=== PATIENT | male | born 1970 | race Caucasian/White ===

== ENCOUNTER 2018-05-22 12:04 | Inpatient (IN) ==
[2018-05-22] MEDS ORDERED: ATIVAN IV ONE ×2 (12:23→16:19)
[2018-05-22] MEDS ORDERED: NS 1,000 ML IV ONE ×2 (12:23→16:15)
[2018-05-22 12:38] LABS: BASO# 0.01 X1000 (0.0-0.2); BASO% 0.1 % (0.0-0.8); EOS# 0.01 X1000 (0.0-0.7); EOS% 0.1 % (0.0-10.0); HEMATOCRIT 37.4 % (42.0-52.0); IMM GRAN# 0.02 X1000 (0.0-0.04); IMM GRAN% 0.2 % (0.0-0.5); LYMPH# 0.98 X1000 (1.2-3.4); MCH 31.3 PG (27-31); MCHC 34.8 g/dL (33-37); MCV 90.1 FL (81-99); MONO# 0.47 X1000 (0.11-0.59); MONO% 5.3 % (1.7-9.3); NEUT# 7.45 X1000 (1.4-6.5); NEUT% 83.3 % (42.2-75.2); PLT 261 X1000 (130-400); RBC 4.15 XMIL (4.7-6.1); RDW 13.3 % (11.5-14.5); WBC 8.94 X1000 (4.8-10.8)
[2018-05-22 12:44] LABS: BE -7.5 mmoll (-3.0-3.0); BLOOD TYPE ARTERIAL; METHB 1.3 % (0.0-1.5); PCO2(98.6) 40 mmHg (35-45); PO2(98.6) 88 mmHg (60-100); SAMPLE BLOOD; SAO2 98.5 % (95.0-100.0); THB 13.4 g/dL (11.5-17.4); pH(98.6) 7.28 (7.35-7.45)
[2018-05-22 12:49] LABS: ALLEN TEST YES; MODALITY ROOM AIR
[2018-05-22] MEDS ORDERED: ATIVAN ONE ×2 (12:53)
[2018-05-22] MEDS ORDERED: NS 1,000 ML ONE ×2 (12:55)
[2018-05-22 12:56] LABS: ACETONE SERUM NEGATIVE (NEGATIVE)
[2018-05-22 13:06] LABS: AGAP 24; ALBUMIN 4.1 g/dL (3.5-5.0); ALKALINE PHOSPHATASE 133 U/L (32-122); BUN 29 mg/dL (8-22); CALCIUM 9.2 mg/dL (8.8-10.2); CHLORIDE 96 mmol/L (98-107); COSMO 289; CREATININE 1.6 mg/dL (0.7-1.2); ESTIMATED GFR 47; GLUCOSE 360 mg/dL (70-104); GOT 23 U/L (10-34); GPT 26 U/L (10-44); POTASSIUM 5.7 mmol/L (3.5-5.1); SODIUM 134 mmol/L (136-145); TCO2 14 mmol/L (25-35); TOTAL BILIRUBIN < 0.15 mg/dL (0.20-1.00); TOTAL PROTEIN 7.8 g/dL (6.3-8.3)
--- NOTE | 2018-05-22 13:23 | Diag Imaging Result Doc PS360 ---
EXAM: CT HEAD W/O CONTRAST HISTORY: multi seizures TECHNIQUE: CT head without contrast COMPARISON: 10/14/2017 FINDINGS: No parenchymal hemorrhage. No epidural or subdural hematoma. No subarachnoid hemorrhage. There are postsurgical changes with encephalomalacia in the left temporal region similar to the prior study. Small old left cerebellar infarct similar to the prior exam. No mass identified on this noncontrasted exam. No hydrocephalus. No sinus opacification. IMPRESSION: 1.No hemorrhage 2.Postsurgical changes with encephalomalacia in the left temporal region 3.Small old left cerebellar infarct This exam was performed using automated exposure control, adjustment of mA or kV according to patient size, and/or use of iterative reconstruction technique. Electronically signed by Mark Ty 05/22/2018 1:21 PM
--- NOTE | 2018-05-22 13:24 | Diag Imaging Result Doc PS360 ---
EXAM: CHEST-1 VIEW HISTORY: seizure,ams TECHNIQUE: Chest single view COMPARISON: 10/14/2017 FINDINGS: Poor inspiratory effort. The heart is not enlarged. The vessels are not distended. There are no infiltrates. No effusion identified. IMPRESSION: Negative exam. Electronically signed by Mark Ty 05/22/2018 1:22 PM
[2018-05-22 14:20] LABS: BILIRUBIN URINE NEGATIVE (NEGATIVE); BLOOD URINE 1+ (NEGATIVE); CLARITY CLEAR (CLEAR); COLOR YELLOW; KETONE URINE TRACE mg/dL (NEGATIVE); LEUKOCYTES URINE NEGATIVE (NEGATIVE); NITRITE URINE NEGATIVE (NEGATIVE); PROTEIN URINE 1+(30 mg/dL) mg/dL (NEGATIVE); SP GRAVITY URINE 1.015; UROBILINOGEN URINE NORMAL
[2018-05-22 14:28] LABS: URINE BACTERIA 1+ /HFP; URINE EPITHELIAL CELLS <10 /HPF (<10); URINE RBC <10 /HPF (<10)
[2018-05-22 14:29] LABS: URINE CAST NONE SEEN /LPF; URINE CRYSTAL NONE SEEN /HPF; URINE SOURCE CATH; URINE YEAST NONE SEEN /HPF
[2018-05-22 14:44] LABS: CREATININE 1.5 mg/dL (0.7-1.2); POTASSIUM 5.2 mmol/L (3.5-5.1)
[2018-05-22 15:02] LABS: UR AMPHETAMINES QUAL NONE DETECTED (NONE DETECT); UR BARBITUATES QUAL PRESUMPTIVE POSITIVE (NONE DETECT); UR BENZODIAZEPIN QUAL NONE DETECTED (NONE DETECT); UR CANNABINOIDS QUAL NONE DETECTED (NONE DETECT); UR COCAINE QUAL NONE DETECTED (NONE DETECT); UR METHADONE QUAL NONE DETECTED (NONE DETECT); UR METHAMPHETAMINE QUAL NONE DETECTED (NONE DETECT); UR OPIATES QUAL NONE DETECTED (NONE DETECT); UR OXYCODONE QUAL NONE DETECTED (NONE DETECT); UR PCP QUAL NONE DETECTED (NONE DETECT); UR PROPOXYPHENE QUAL NONE DETECTED (NONE DETECT); UR TCA QUAL NONE DETECTED (NONE DETECT)
[2018-05-22] MEDS ORDERED: MORPHINE IV PRN (16:15)
[2018-05-22] MEDS ORDERED: TYLENOL PO PRN (16:15)
--- NOTE | 2018-05-22 16:22 | PROVIDER DOCUMENTATION ---
This chart was entered by Clair Kaur Scribe, acting as scribe for Jake Hernandez MD. HPI-Neurological Disorder - General Chief Complaint: Seizure Stated Complaint: Seizure Time Seen by Provider: 05/22/18 12:10 Source: EMS Allergies/Adverse Reactions: Patient Allergies Allergy/AdvReac Type Severity Reaction Status Date / Time clindamycin Allergy Intermediate HIVES Verified 07/25/17 02:31 Penicillins Allergy Intermediate HIVES Verified 07/25/17 02:31 piperacillin sodium * Allergy Intermediate FLUSHING Verified 07/25/17 02:31 [From Zosyn] tazobactam sodium * Allergy Intermediate FLUSHING Verified 07/25/17 02:31 [From Zosyn] Home Medications: Home Medication List Medication Instructions Recorded Confirmed Last Taken Type Metformin [Glucophage] 1,000 mg PO BID CC 09/10/14 07/26/17 09/26/14 09:00 History Phenytoin [Dilantin] 200 mg PO TID 09/10/14 07/26/17 09/26/14 09:00 History Amlodipine [Norvasc] 5 mg PO DAILY 05/01/17 07/26/17 Unknown History Lisinopril 40 mg PO DAILY 05/01/17 07/26/17 Unknown History Gabapentin [Neurontin] 100 mg PO TID 07/25/17 07/26/17 Unknown History Lovastatin 40 mg PO DAILY 07/25/17 07/26/17 Unknown History Hydrocodone/APAP 5 mg/325 mg 1 tab PO Q4H PRN PRN #30 tab 08/01/17 Unknown Rx [[place]-5] Insulin Glargine,Hum.rec.anlog 15 unit SQ BID #5 insuln.pen 08/01/17 Unknown Rx [Lantus Solostar] - History of Present Illness-Neuro Nature of Presenting Problem: pt is 47/m presenting to ED via EMS. Pt has had 5 seizures are home this morning , called EMS to help her get him into bed. He then had a 6th seizure and was brought to the ED for evaluation. Pt has hx of seizure disorder and takes dilantin regularly. sts that there has been no change to his medication and that he is taking it as prescribed. He is reported to have had an episode like this about 3 months ago where he had a seizure every hour or so for a whole day. No reason was found that is told to us. - Seizure First time to have a seizure?: No Witnessed seizure?: Yes How many seizure episodes?: 6 Duration of episode? (mins): 2 Approximate time seizures began?: 05:00 Approximate time of the last seizure?: 11:30 Episode Frequency: chronic episodes Preceding symptoms/context:: none Character of Seizure: reports: generalized shaking all over Post-ictal Symptoms: reports: other (pt is lethargic) Seizure related injury: none Review of Systems - Adult - REVIEW OF SYSTEMS - ADULT Constitutional: reports: no symptoms reported. denies: chills, fever Eyes: reports: no symptoms reported Ears, Nose, Mouth & Throat: reports: no symptoms reported Cardiovascular: reports: no symptoms reported. denies: chest pain Respiratory: reports: no symptoms reported. denies: cough, shortness of breath , wheezing Gastrointestinal: reports: no symptoms reported. denies: diarrhea, nausea, vomiting Genitourinary: reports: no symptoms reported Musculoskeletal: reports: no symptoms reported Integumentary: reports: no symptoms reported Neurological: reports: no symptoms reported Psychiatric: reports: no symptoms reported Endocrine: reports: no symptoms reported Hematologic/Lymphatic: reports: no symptoms reported Allergic/Immunologic: reports: no symptoms reported All Other Systems: Reviewed and Negative Past History - Adult - PAST MEDICAL HISTORY-ADULT Review of Records: reports: Old Records Reviewed, Nursing Assessment Review, Medications Reviewed, Social history reviewed & non-contributory. Major Childhood Illnesses: reports: denies history Cardiovascular: reports: HTN Respiratory: reports: denies history Gastrointestinal: reports: denies history Obstetrical/Gynecological: reports: denies history Genitourinary: reports: other (chronic renal insuficiency. Previous Creatin 1.5 ) Musculoskeletal: reports: denies history Neurological: reports: Seizures/Epilepsy, spinal cord/brain injury Psychiatric: reports: depression Endocrine/Immune: reports: Diabetes Other Conditions: reports: MRSA, other (mulitple craniotomies) - PRIOR SURGERIES/PROCEDURES Surgical/Procedure History: reports: tonsillectomy, other (toe amputation) - PRIOR HOSPITALIZATIONS Prior Hospitalizations: reports: for similar symptoms - IMMUNIZATION STATUS Childhood Immunizations: See Nurse Assessment Flu Vaccine: See Nurse Assessment - FAMILY HISTORY Family History: reviewed, not pertinent - SOCIAL HISTORY Smoking: denies, non-smoker Substance Use: none/never Alcohol Use Frequency: never Living Situation: family Physical Exam- Neurological - Physical Exam-Neuro Initial Vital Signs Reviewed: Yes General Appearance: lethargic, slow to respond HENMT: normocephalic/atraumatic, moist mucous membranes Head Injury: no evidence of injury Neck: non-tender, full range of motion Respiratory: lungs clear, normal breath sounds Cardiovascular: regular rate, rhythm, no edema, no JVD, tachycardia Abdominal Exam: non tender, soft Extremity: normal range of motion, non-tender, other (prior toe amputations) Motor/Sensory: no motor deficit Neurologic: grossly normal Integumentary: normal color, normal turgor, warm/dry Psych/Mental Status: disheveled - Glascow Coma Scale Best Eye Response: (3) open to voice Best Verbal Response: (1) no verbal response Best Motor Response: (5) localizes to pain Progress - PLAN OF CARE/RESULTS Progress/Plan/Lab Results: Vital Signs - 8 hr 05/22/18 12:13 05/22/18 14:10 05/22/18 14:18 Temperature 96.9 F L Pulse Rate 87 83 Respiratory Rate 16 18 Blood Pressure 142/079 143/87 O2 Sat by Pulse Oximetry 97 100 05/22/18 15:54 Temperature Pulse Rate 85 Respiratory Rate 15 Blood Pressure 168/104 O2 Sat by Pulse Oximetry 100 Laboratory Results - last 24 hr 05/22/18 05/22/18 05/22/18 12:19 12:19 12:19 WBC 8.94 RBC 4.15 L Hgb 13.0 L Hct 37.4 L MCV 90.1 MCH 31.3 H MCHC 34.8 RDW Std Deviation 13.3 Plt Count 261 MPV 10.0 Immature Gran % (Auto) 0.2 Neut % (Auto) 83.3 H Lymph % (Auto) 11.0 L [place] % (Auto) 5.3 Eos % (Auto) 0.1 Baso % (Auto) 0.1 Immature Gran # (Auto) 0.02 Neut # (Auto) 7.45 H Lymph # (Auto) 0.98 L [place] # (Auto) 0.47 Eos # (Auto) 0.01 Baso # (Auto) 0.01 Specimen Type Sample Site pH pCO2 pO2 HCO3 Base Excess Oxyhemoglobin ABG O2 Sat (Calculated) ABG O2 Saturation ABG Carboxyhemoglobin ABG Methemoglobin Lalito Test A-a O2 Difference Total Hemoglobin Lactate Blood Gas Modality FiO2 % Sodium 134 L Potassium 5.7 H Chloride 96 L Carbon Dioxide 14 L Anion Gap 24 BUN 29 H Creatinine 1.6 H Estimated GFR/1.73 m2 47 BUN/Creatinine Ratio 18 Glucose 360 H Calculated Osmolality 289 Calcium 9.2 Total Bilirubin < 0.15 L AST 23 ALT 26 Alkaline Phosphatase 133 H Ammonia Troponin T Total Protein 7.8 Albumin 4.1 Globulin 4.0 Albumin/Globulin Ratio 1.0 Urine Source Urine Color Urine Clarity Urine pH Ur Specific [place] Urine Protein Urine Ketones Urine Blood Urine Nitrite Urine Bilirubin Urine Urobilinogen Urine Microscopic RBC Urine WBC Ur Epithelial Cells Urine Crystals Urine Bacteria Urine Casts Urine Yeast Urine Glucose Urine Opiates Screen Ur Oxycodone Screen Urine Methadone Screen U Propoxyphene Qual Ur Barbituates Screen Total Phenytoin 18.30 Ur Tricyclics Screen Ur Phencyclidine Scrn Ur Amphetamines Screen U Methamphetamines Scrn U Benzodiazepines Scrn Urine Cocaine Screen U Cannabinoids Screen Acetone Level NEGATIVE 05/22/18 05/22/18 05/22/18 12:19 12:31 12:40 WBC RBC Hgb Hct MCV MCH MCHC RDW Std Deviation Plt Count MPV Immature Gran % (Auto) Neut % (Auto) Lymph % (Auto) [place] % (Auto) Eos % (Auto) Baso % (Auto) Immature Gran # (Auto) Neut # (Auto) Lymph # (Auto) [place] # (Auto) Eos # (Auto) Baso # (Auto) Specimen Type ARTERIAL Sample Site L RADIAL pH 7.28 L pCO2 40 pO2 88 HCO3 19.0 L Base Excess -7.5 L Oxyhemoglobin 95.0 ABG O2 Sat (Calculated) 18.0 ABG O2 Saturation 98.5 ABG Carboxyhemoglobin 2.30 ABG Methemoglobin 1.3 Lalito Test YES A-a O2 Difference 12.0 Total Hemoglobin 13.4 Lactate 6.70 H* Blood Gas Modality ROOM AIR FiO2 % 21.0 Sodium Potassium Chloride Carbon Dioxide Anion Gap BUN Creatinine Estimated GFR/1.73 m2 BUN/Creatinine Ratio Glucose Calculated Osmolality Calcium Total Bilirubin AST ALT Alkaline Phosphatase Ammonia 34 Troponin T 0.017 Total Protein Albumin Globulin Albumin/Globulin Ratio Urine Source Urine Color Urine Clarity Urine pH Ur Specific [place] Urine Protein Urine Ketones Urine Blood Urine Nitrite Urine Bilirubin Urine Urobilinogen Urine Microscopic RBC Urine WBC Ur Epithelial Cells Urine Crystals Urine Bacteria Urine Casts Urine Yeast Urine Glucose Urine Opiates Screen Ur Oxycodone Screen Urine Methadone Screen U Propoxyphene Qual Ur Barbituates Screen Total Phenytoin Ur Tricyclics Screen Ur Phencyclidine Scrn Ur Amphetamines Screen U Methamphetamines Scrn U Benzodiazepines Scrn Urine Cocaine Screen U Cannabinoids Screen Acetone Level 05/22/18 05/22/18 05/22/18 13:50 13:50 14:02 WBC RBC Hgb Hct MCV MCH MCHC RDW Std Deviation Plt Count MPV Immature Gran % (Auto) Neut % (Auto) Lymph % (Auto) [place] % (Auto) Eos % (Auto) Baso % (Auto) Immature Gran # (Auto) Neut # (Auto) Lymph # (Auto) [place] # (Auto) Eos # (Auto) Baso # (Auto) Specimen Type Sample Site pH pCO2 pO2 HCO3 Base Excess Oxyhemoglobin ABG O2 Sat (Calculated) ABG O2 Saturation ABG Carboxyhemoglobin ABG Methemoglobin Lalito Test A-a O2 Difference Total Hemoglobin Lactate Blood Gas Modality FiO2 % Sodium 135 L Potassium 5.2 H Chloride 100 Carbon Dioxide 21 L Anion Gap 15 BUN 28 H Creatinine 1.5 H Estimated GFR/1.73 m2 50 BUN/Creatinine Ratio 19 Glucose 325 H Calculated Osmolality 288 Calcium 9.0 Total Bilirubin AST ALT Alkaline Phosphatase Ammonia Troponin T Total Protein Albumin Globulin Albumin/Globulin Ratio Urine Source CATH Urine Color YELLOW Urine Clarity CLEAR Urine pH 5.0 Ur Specific [place] 1.015 Urine Protein 1+(30 mg/dL) A Urine Ketones TRACE Urine Blood 1+ A Urine Nitrite NEGATIVE Urine Bilirubin NEGATIVE Urine Urobilinogen NORMAL Urine Microscopic RBC <10 Urine WBC NEGATIVE Ur Epithelial Cells <10 Urine Crystals NONE SEEN Urine Bacteria 1+ Urine Casts NONE SEEN Urine Yeast NONE SEEN Urine Glucose 3+(500 mg/dL) A Urine Opiates Screen NONE DETECTED Ur Oxycodone Screen NONE DETECTED Urine Methadone Screen NONE DETECTED U Propoxyphene Qual NONE DETECTED Ur Barbituates Screen PRESUMPTIVE POSITIVE A Total Phenytoin Ur Tricyclics Screen NONE DETECTED Ur Phencyclidine Scrn NONE DETECTED Ur Amphetamines Screen NONE DETECTED U Methamphetamines Scrn NONE DETECTED U Benzodiazepines Scrn NONE DETECTED Urine Cocaine Screen NONE DETECTED U Cannabinoids Screen NONE DETECTED Acetone Level Orders Category Date Time Status Admit - [facility] Routine AdmDCTranf 05/22/18 16:15 Ordered Call Admitting on Arrival AT ADMISSION Care 05/22/18 16:16 Ordered Cardiac Monitoring DIRECTED Care 05/22/18 12:19 Active Resuscitation Status Routine Care 05/22/18 16:15 Ordered Saline Loc DIRECTED Care 05/22/18 16:15 Ordered Saline Loc NOW Care 05/22/18 12:19 Active Vital Signs Order ROUTINE Care 05/22/18 16:15 Ordered Z-Document. for Tele Applied ORDERED Care 05/22/18 16:16 Ordered NPO Diet 05/22/18 16:17 Ordered CHEST-1 VIEW [RAD] Stat Exams 05/22/18 12:[address] HEAD W/O CONTRAST [CT] Stat Exams 05/22/18 12:22 Completed ABG [RESP] Routine Lab 05/22/18 12:31 Completed ACETONE SERUM [CHEM] Stat Lab 05/22/18 12:19 Completed AMMONIA [CHEM] Stat Lab 05/22/18 12:40 Completed BLOOD CULTURE [BLDCUL] Stat Lab 05/22/18 14:02 Results BMP [BASIC METABOLIC PANEL] [CHEM] Stat Lab 05/22/18 14:02 Completed CBC WITH ELECTRONIC DIFF [HEME] Stat Lab 05/22/18 12:19 Completed COMPREHENSIVE METABOLIC PANEL [CHEM] Stat Lab 05/22/18 12:19 Completed Dilantin [PHENYTOIN] [TDM] Stat Lab 05/22/18 12:19 Completed TROPONIN T Stat Lab 05/22/18 12:[address] W/POSS RFLX CULT [URINALYSIS] Stat Lab 05/22/18 13:50 Completed URINE DRUG SCREEN PL Stat Lab 05/22/18 13:50 Completed 0.9% Sodium Chloride Inj [Ns] 1,000 ml Med 05/22/18 12:55 Discontinued .ROUTE As Directed 0.9% Sodium Chloride Inj [Ns] 1,000 ml Med 05/22/18 16:15 Ordered IV 150 mls/hr 0.9% Sodium Chloride Inj [Ns] 1,000 ml Med 05/22/18 12:23 Discontinued IV 999 mls/hr Acetaminophen [Tylenol] Med 05/22/18 16:15 Ordered 650 mg PO Q6H PRN PRN Lorazepam [Ativan] Med 05/22/18 12:23 Discontinued 1 mg IV NOW ONE Lorazepam [Ativan] Med 05/22/18 16:19 Once 1 mg IV NOW ONE Lorazepam [Ativan] Med 05/22/18 12:53 Discontinued 2 mg .ROUTE .STK-MED ONE Morphine Med 05/22/18 16:15 Ordered 2 mg IV Q2H PRN PRN Telemetry [OM.EQ] Routine Oth 05/22/18 16:15 Ordered Transfer/Admit Order [TRANSFER] Routine Transfer 05/22/18 14:09 Ordered Result Diagrams: 05/22/18 12:19 05/22/18 14:02 - REASSESSMENT Reassessment #1 Time Reassessed: 16:20 Status: improving (PT NOW AWAKE BUT VERY SLOW MENTALLY, NOW W/ TREMORS, WILL REPEAT ATIVAN, ORDERS WRITTEN FOR ADMISSION) - CONSULTS/PCP/HOSPITALIST Notification #1 *Consult/PCP/Hospitalist*: dr BENJAMIN Time Discussed: 14:08 Consult Disposition: Admit (ICU) Departure - Departure Date of Disposition Decision: 05/22/18 Time of Disposition Decision: 13:56 DIAGNOSIS: Seizures, DKA (diabetic ketoacidoses) Disposition: ADMITTED INPATIENT 09 Certified Medical Emergency: Emergent Condition: Fair Referrals and Follow-Ups: None,PCP [Primary Care Provider] - - Critical Care Note This patient required my direct & personal management of CC.: Yes Total Time (mins): 30 Critical Care Statement: This patient required my direct personal management to treat or rule out processes, the absence of which, could potentiallly result in sudden, clinically significant life or limb threatening deterioration. Attestation - Physician/ CARMEN Attestation Patient care was provided by Advanced Practice Provider:: No The physician spent face to face time with patient:: Yes Advanced Practice Provider documentation review:: Supervising physician onsite and consulted in the evaluation and care of this patient. The physician did have a face to face encounter with the patient. This chart was documented by the indicated scribe, (Clair Kaur, Fabiana) and accurately reflects the services I performed and decisions made by me, Jake Hernandez MD, as attested by the provider's signature.
[2018-05-22] MEDS: NS 1,000 ML IV SCH (17:42)
[2018-05-22 17:50] LABS: CALCIUM 9.1 mg/dL (8.8-10.2); CREATININE 1.3 mg/dL (0.7-1.2); MAGNESIUM 2.2 mg/dL (1.5-2.7); PHOSPHORUS 3.1 mg/dL (2.7-4.5); POTASSIUM 4.7 mmol/L (3.5-5.1)
[2018-05-22] MEDS ORDERED: ATIVAN IV PRN ×2 (17:53→18:16)
[2018-05-22] MEDS ORDERED: PROTONIX IV SCH (19:15)
[2018-05-22] MEDS ORDERED: SODIUM CHLORIDE 0.9% INJ SCH (19:15)
--- NOTE | 2018-05-22 19:22 | Diag Imaging Result Doc PS360 ---
EXAM: FOOT COMPLETE RIGHT HISTORY: pain, h/o osteomyelitis TECHNIQUE: Right foot, three views COMPARISON: 07/25/2017 FINDINGS: Two thirds of the fifth metatarsal and fifth toe have been removed since the prior study. No periosteal reaction. No bone erosions. No acute fracture or dislocation. IMPRESSION: No plain film evidence of osteomyelitis. If clinical suspicion persists an MRI is recommended. Electronically signed by Mark Ty 05/22/2018 7:20 PM
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
[2018-05-22] MEDS: DILANTIN PO SCH (21:50)
[2018-05-22] MEDS: HUMALOG (PARKWAY) SUBQ SCH (21:50)
--- NOTE | 2018-05-22 23:47 | HISTORY AND PHYSICAL ---
ADDENDUM: Patient seen and examined by myself. Full note dictated and discussed with nurse practitioner. We discussed clinical course with Neurology as well. Patient has an elevated lactate, had a seizure earlier today which certainly can cause elevated lactate. Does have an abnormal, CT, with a previous cerebellar CVA. We will admit to the hospital ICU. We will follow closely. We will not start on antibiotics currently, as it certainly appears as though he could simply have an elevated lactate due to his seizure. cc: Alvaro Bowden MD
[2018-05-23] MEDS: NS 1,000 ML IV SCH ×2 (03:01→16:40)
[2018-05-23] MEDS: HUMALOG (PARKWAY) SUBQ SCH ×4 (06:47→20:08)
[2018-05-23] MEDS: PRILOSEC PO SCH (06:48)
[2018-05-23 06:53] LABS: HEMATOCRIT 34.7 % (42.0-52.0); HEMOGLOBIN 11.8 g/dL (14.0-18.0); MCH 30.4 PG (27-31); MCV 89.4 FL (81-99); MPV 9.9 FL (7.4-10.4); RBC 3.88 XMIL (4.7-6.1); RDW 13.1 % (11.5-14.5); WBC 9.05 X1000 (4.8-10.8)
[2018-05-23 07:10] LABS: BILIRUBIN URINE NEGATIVE (NEGATIVE); BLOOD URINE 3+ (NEGATIVE); CLARITY CLEAR (CLEAR); COLOR YELLOW; KETONE URINE NEGATIVE (NEGATIVE); LEUKOCYTES URINE 1+ (NEGATIVE); NITRITE URINE NEGATIVE (NEGATIVE); PROTEIN URINE 1+(30 mg/dL) mg/dL (NEGATIVE); SP GRAVITY URINE 1.015; UROBILINOGEN URINE NORMAL
[2018-05-23 07:11] LABS: URINE EPITHELIAL CELLS <10 /HPF (<10); URINE SOURCE CATH; URINE WBC <10 /HPF (<10)
[2018-05-23 07:13] LABS: AGAP 12; ALBUMIN 3.8 g/dL (3.5-5.0); ALKALINE PHOSPHATASE 122 U/L (32-122); BUN 20 mg/dL (8-22); CHLORIDE 104 mmol/L (98-107); COSMO 286; CREATININE 1.2 mg/dL (0.7-1.2); ESTIMATED GFR > 60; GLUCOSE 203 mg/dL (70-104); GOT 13 U/L (10-34); GPT 18 U/L (10-44); MAGNESIUM 2.1 mg/dL (1.5-2.7); PHOSPHORUS 2.7 mg/dL (2.7-4.5); POTASSIUM 4.2 mmol/L (3.5-5.1); SODIUM 139 mmol/L (136-145); TCO2 23 mmol/L (25-35); TOTAL PROTEIN 7.5 g/dL (6.3-8.3)
[2018-05-23] MEDS: DILANTIN PO SCH ×4 (09:46→21:14)
[2018-05-23] MEDS: LAMICTAL PO SCH (12:44)
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
--- NOTE | 2018-05-24 00:23 | PROGRESS NOTE ---
DATE: 05/23/2018 SUBJECTIVE: Patient has had no further seizure activity while he is in the hospital. He is becoming slowly more alert and oriented. PHYSICAL EXAM: VITAL SIGNS: Temperature 98.4, pulse 82, respiratory 16, BP 162/85. General: Patient is awake, alert, pleasant to talk with. He is in no current distress. HEENT: Normocephalic. Neck: Supple. CARDIOVASCULAR: Regular rate. No murmurs. Chest: Clear, nonlabored. No wheezing. Abdomen: Soft, obese, nondistended, nontender. Neurological: He has no focal neurological changes. He has no edema. ASSESSMENT: 1. Acute seizure disorder. 2. Elevated lactic acid secondary to seizure. 3. Hyperkalemia, resolved. 4. Chronic kidney disease, appears resolved. 5. Diabetes type 2. PLAN: Dr. Ceron has seen the patient graciously in consultations. Overall, patient has improved. Dr. Ceron has decided to place him on lamotrigine and continue phenytoin for now. Hopefully, patient can transition to the floor if there is a bed. We will continue to follow further orders as needed. cc: Alvaro Bowden MD
[2018-05-24] MEDS: NS 1,000 ML IV SCH (02:19)
[2018-05-24] MEDS: HUMALOG (PARKWAY) SUBQ SCH ×4 (06:31→17:04)
[2018-05-24] MEDS: CELEXA PO SCH (09:05)
[2018-05-24] MEDS: PRILOSEC PO SCH (09:06)
[2018-05-24] MEDS: MEVACOR PO SCH (09:06)
[2018-05-24] MEDS: GLUCOPHAGE PO SCH ×2 (09:06→17:04)
[2018-05-24] MEDS: LAMICTAL PO SCH ×2 (09:06→21:47)
[2018-05-24] MEDS: DILANTIN PO SCH ×4 (09:06→21:47)
--- NOTE | 2018-05-24 22:13 | PROGRESS NOTE ---
DATE: 05/24/2018 SUBJECTIVE: The patient this morning notes that he is feeling a little bit better although oddly enough when family arrives all his symptoms worsened including his confusion, his inability to feed himself or to sit up. OBJECTIVE: Vital Signs: Temperature 98.9, pulse 84, respiratory rate 18, BP 145/88. General: The patient is awake, alert, currently in no distress. HEENT: Normocephalic. Neck: Supple. Cardiovascular: Regular rate. No murmurs. Chest: Clear. Nonlabored. Abdomen: Soft. Nondistended. Extremities: Moves all extremities although generalized weakness. ASSESSMENT: 1. Seizures. 2. Elevated lactic acid, resolved. 3. Hyperkalemia, resolved. 4. Chronic obstructive pulmonary disease. 5. Chronic kidney disease, back to baseline. 6. Type 2 diabetes with hyperglycemia. PLAN: The patient will continue in the hospital today as he states he is too weak to get out of bed. Discussed with the patient that should this continue that he will need to consider rehabilitation. Hopefully he will improve and can be discharged home tomorrow. cc: Alvaro Bowden MD
[2018-05-25] MEDS: HUMALOG (PARKWAY) SUBQ SCH ×5 (00:05→20:39)
[2018-05-25] MEDS: PRILOSEC PO SCH (06:01)
[2018-05-25] MEDS: DILANTIN PO SCH ×4 (08:50→20:39)
[2018-05-25] MEDS: MEVACOR PO SCH (08:50)
[2018-05-25] MEDS: GLUCOPHAGE PO SCH ×2 (08:50→16:18)
[2018-05-25] MEDS: CELEXA PO SCH (08:50)
[2018-05-25] MEDS: LAMICTAL PO SCH ×2 (08:50→20:39)
--- NOTE | 2018-05-26 00:20 | PROGRESS NOTE ---
DATE: 05/25/2018 SUBJECTIVE: Patient notes that he is feeling okay. Denies any drowsiness or dizziness. Did have an episode earlier where he had fallen after he attempted to stand. States he is still very weak and fatigued. Currently denying rehab. PHYSICAL EXAMINATION: Vital Signs: Temperature 98.8 degrees, pulse 84, respiratory 18, BP 145/88. General: Patient is a 47-year-old male who has a known history of seizures secondary to brain injuries. Still having generalized weakness. He has not had a seizure while he has been in the hospital with the addition of medications per Neurology. However, he is still generally weak. HEENT: Normocephalic. Neck: Supple. Cardiovascular: Regular rate. No murmurs. Chest: Clear and nonlabored. No wheezing. Abdomen: Soft, nondistended, nontender. Extremities: Moves all extremities. He has no focal neurologic weakness. ASSESSMENT: 1. Seizure disorder, currently stable. 2. Generalized weakness. 3. Type 2 diabetes. 4. Hyperkalemia, resolved. 5. Nonsustained ventricular tachycardia. Patient had a 7 to 10 beat run of ventricular tachycardia earlier. Has not done since. He was asymptomatic during this episode. PLAN: We will continue physical therapy. Continue to monitor his heart. Hopefully, patient will decide and allow rehab. If not, we will have to discharge him home with home physical therapy. cc: Alvaro Bowden MD
[2018-05-26] MEDS: PRILOSEC PO SCH (06:10)
[2018-05-26] MEDS: HUMALOG (PARKWAY) SUBQ SCH ×2 (06:41→12:26)
[2018-05-26] MEDS: MEVACOR PO SCH (08:47)
[2018-05-26] MEDS: LAMICTAL PO SCH (08:47)
[2018-05-26] MEDS: DILANTIN PO SCH ×3 (08:47→16:36)
[2018-05-26] MEDS: CELEXA PO SCH (08:47)
[2018-05-26] MEDS: GLUCOPHAGE PO SCH ×2 (08:47→16:36)
[2018-05-26 10:44] VITALS: BP 119/68
--- NOTE | 2018-05-27 00:35 | DISCHARGE SUMMARY ---
ADMISSION DATE: 05/22/2018 DISCHARGE DATE: 05/26/2018 ADDENDUM: Patient seen and examined by myself. Full note dictated and discussed with nurse practitioner. Patient admitted to the hospital secondary to seizures. Dr. Ceron saw and adjusted his seizure medications. Thankfully, patient did not have any seizures during the hospital. His hospital course was prolonged secondary to generalized weakness. On discharge, patient notes he was able to ambulate better. He did have 1 episode of nonsustained ventricular tachycardia while he was in the hospital and this certainly will need to be followed up outpatient with Cardiology or his primary care. He also had difficulty with generalized weakness. Certainly would prefer patient to go to rehab although patient declined. States that he is going to go home with Home Health. Please see full note. cc: Alvaro Bowden MD
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
--- NOTE | 2018-05-29 12:10 | EEG REPORT ---
DATE: 05/23/2018 REFERRING PHYSICIAN: Dr. Bowden [employer] RECEIVER: Renee Austin BACKGROUND INFORMATION AND TECHNIQUE: This is a digitally recorded EEG with video history. A 47- year-old male patient with longstanding history of seizure disorder, admitted with multiple seizures. EEG is ordered to detect evidence of seizures. MEDICATIONS: Dilantin and Lamictal. EEG FINDINGS: A posterior dominant alpha rhythm is not seen. The background consists of theta delta slowing at times with some intermixed faster frequencies. There are brief periods of diffuse semi-rhythmic delta frequencies, some with sharply contoured waveforms. No definite epileptiform discharges. No seizures. Hyperventilation was not performed. Photic stimulation did not alter the record. No definite drowsiness patterns. Stage II sleep is not seen. EKG demonstrates regular intervals. IMPRESSION AND CLINICAL CORRELATION: Abnormal routine EEG due to moderate generalized slowing indicative of a moderate nonspecific encephalopathy. No definite epileptiform discharges seen on the current study. This does not rule out an underlying seizure disorder. Clinical correlation is recommended. cc: MD Maday Schultz CRNP MTDD
== END 2018-05-26 16:56 | disposition home health service (06) | DRG 100 ==
LOC: P.ED 12:04 → P.ICU 16:47 → P.MEDSURG 05-24 02:06
PROVIDERS: ATTEND Family Medicine
CPT/HCPCS: 51702; 70450; 71010; 71045; 73630; 80048; 80053; 80104; 80185; 80301; 80305; 81001; 82009; 82140; 82805; 82948; 83735; 84100; 84484; 85025; 85027; 87040; 87088; 95816; 96361; 96374; 96376; 97163; 97530; 99285; 99291; A9270; C9113; G0431; G0434; G0477; J1815; J2060; J7030; S0164; XXXXX

== ENCOUNTER 2018-08-14 15:03 | Observation (INO) ==
[2018-08-14] MEDS ORDERED: DILANTIN PO ONE (15:37)
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
[2018-08-14] MEDS ORDERED: ATIVAN IV ONE (17:20)
[2018-08-14] MEDS ORDERED: ATIVAN ONE (17:24)
[2018-08-14] MEDS ORDERED: LAMICTAL PO ONE (17:39)
--- NOTE | 2018-08-14 18:53 | Diag Imaging Result Doc PS360 ---
EXAM: CT HEAD W/O CONTRAST HISTORY: seizure TECHNIQUE: CT head without contrast COMPARISON: 05/22/2018 FINDINGS: No parenchymal hemorrhage. No epidural or subdural hematoma. No subarachnoid hemorrhage. Postsurgical changes with encephalomalacia in the left temporal region similar to the prior study. Old left cerebellar infarct prior study. No mass identified on this noncontrasted exam. No hydrocephalus. No sinus opacification. IMPRESSION: No hemorrhage. No change from the prior exam. This exam was performed using automated exposure control, adjustment of mA or kV according to patient size, and/or use of iterative reconstruction technique. Electronically signed by Mark Ty 08/14/2018 6:50 PM
--- NOTE | 2018-08-14 19:55 | ED EKG INTERP ---
This chart was entered by Imelda Lei Scribe, acting as scribe for Salas Terry MD. EKG Interpretation - EKG Time of EKG reading by physician:: 19:25 EKG Read and Signed by:: Salas Terry EKG Interpretation (*Must complete 3 of following elements*): Normal Rate: 103 Rhythm: [facility] [place]: normal QRS: normal [place] Interval: normal ST Wave: normal Attestation - Physician/ CARMEN Attestation Patient care was provided by Advanced Practice Provider:: No The physician spent face to face time with patient:: Yes Advanced Practice Provider documentation review:: Supervising physician onsite and consulted in the evaluation and care of this patient. The physician did have a face to face encounter with the patient. This chart was documented by the indicated scribe, (Imelda Lei Scribe) and accurately reflects the services I performed and decisions made by meHarrison Brad R., MD, as attested by the provider's signature.
[2018-08-14 20:11] LABS: BASO# 0.01 X1000 (0.0-0.2); BASO% 0.1 % (0.0-0.8); EOS# 0.01 X1000 (0.0-0.7); EOS% 0.1 % (0.0-10.0); HEMATOCRIT 39.4 % (42.0-52.0); HEMOGLOBIN 14.2 g/dL (14.0-18.0); IMM GRAN# 0.04 X1000 (0.0-0.04); IMM GRAN% 0.2 % (0.0-0.5); LYMPH# 0.78 X1000 (1.2-3.4); LYMPH% 4.6 % (20.5-51.1); MCV 83.1 FL (81-99); MONO# 0.95 X1000 (0.11-0.59); MONO% 5.6 % (1.7-9.3); MPV 10.1 FL (7.4-10.4); NEUT# 15.13 X1000 (1.4-6.5); NEUT% 89.4 % (42.2-75.2); PLT 306 X1000 (130-400); RBC 4.74 XMIL (4.7-6.1); RDW 11.9 % (11.5-14.5); WBC 16.92 X1000 (4.8-10.8)
[2018-08-14 20:29] LABS: POTASSIUM 5.4 mmol/L (3.5-5.1)
[2018-08-14 20:30] LABS: ALB/GLOB RATIO 1.3; ALBUMIN 4.8 g/dL (3.5-5.0); CREATININE 1.5 mg/dL (0.7-1.2); TOTAL BILIRUBIN 0.2 mg/dL (0.20-1.00); TOTAL PROTEIN 8.5 g/dL (6.3-8.3)
[2018-08-14] MEDS ORDERED: NS 1,000 ML IV ONE (21:15)
[2018-08-14] MEDS ORDERED: CALCIUM CHLORIDE 1 GM in NS 100 ML IV ONE (21:16)
[2018-08-14] MEDS ORDERED: HUMULIN R IV ONE (21:16)
[2018-08-14 22:07] LABS: MAGNESIUM 2.3 mg/dL (1.5-2.7); PHENYTOIN 3.2 ug/mL (10-20)
[2018-08-15] MEDS: NS 1,000 ML IV SCH ×3 (01:36→18:19)
[2018-08-15] MEDS: HUMULIN R SUBQ SCH ×5 (01:37→22:23)
[2018-08-15 02:40] LABS: UR AMPHETAMINES QUAL NONE DETECTED (NONE DETECT); UR BARBITUATES QUAL NONE DETECTED (NONE DETECT); UR BENZODIAZEPIN QUAL NONE DETECTED (NONE DETECT); UR CANNABINOIDS QUAL NONE DETECTED (NONE DETECT); UR COCAINE QUAL NONE DETECTED (NONE DETECT); UR METHADONE QUAL NONE DETECTED (NONE DETECT); UR OPIATES QUAL NONE DETECTED (NONE DETECT); UR OXYCODONE QUAL NONE DETECTED (NONE DETECT); UR PCP QUAL NONE DETECTED (NONE DETECT)
--- NOTE | 2018-08-15 07:19 | EKG Report ---
Test Performed on : 08/14/2018 7:25:07 PM Test Reason : seizure Blood Pressure : / mmHG Vent. Rate : 103 BPM Atrial Rate : 103 BPM P-R Int : 194 ms QRS Dur : 092 ms QT Int : 336 ms P-R-T Axes : 028 072 028 degrees QTc Int : 440 ms Sinus tachycardia. Otherwise normal ECG When compared with ECG of 14-OCT-2017 10:34, No significant change was found Unconfirmed Result
[2018-08-15] MEDS: NORVASC PO SCH (08:42)
[2018-08-15] MEDS: PRINIVIL PO SCH ×3 (08:42→09:45)
[2018-08-15] MEDS: CELEXA PO SCH (08:43)
[2018-08-15] MEDS: DILANTIN PO SCH ×4 (08:43→22:21)
[2018-08-15] MEDS: MEVACOR PO SCH (08:43)
[2018-08-15] MEDS ORDERED: LAMICTAL PO SCH ×2 (09:00→21:00)
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
[2018-08-15 10:04] LABS: BASO# 0.03 X1000 (0.0-0.2); BASO% 0.2 % (0.0-0.8); EOS# 0.09 X1000 (0.0-0.7); EOS% 0.6 % (0.0-10.0); HEMATOCRIT 36.1 % (42.0-52.0); HEMOGLOBIN 12.6 g/dL (14.0-18.0); IMM GRAN# 0.05 X1000 (0.0-0.04); IMM GRAN% 0.4 % (0.0-0.5); LYMPH# 2.63 X1000 (1.2-3.4); LYMPH% 18.5 % (20.5-51.1); MCH 30.9 PG (27-31); MCHC 34.9 g/dL (33-37); MCV 88.5 FL (81-99); MONO% 7.8 % (1.7-9.3); MPV 10.7 FL (7.4-10.4); NEUT# 10.29 X1000 (1.4-6.5); NEUT% 72.5 % (42.2-75.2); PLT 167 X1000 (130-400); RBC 4.08 XMIL (4.7-6.1); RDW 12.1 % (11.5-14.5); WBC 14.19 X1000 (4.8-10.8)
--- NOTE | 2018-08-15 10:26 | PROGRESS NOTE ---
DATE: 08/15/2018 SUBJECTIVE: The patient states that he is feeling better. He has had no further seizure activity since admitted to the floor. He has no complaints. OBJECTIVE: Vital signs: Blood pressure is 112/71 with a heart rate of 70, respirations 18, temperature is 99 degrees with O2 saturations 96 to 98 percent on room air. Eyes: Pupils equal, round, react to light. EOMs are intact sclerae anicteric. HEENT: Head is normocephalic, atraumatic. Mucous membranes are moist. Neck: Supple, trachea midline. Cardiovascular: Regular rate and rhythm. S1, S2 appreciated. He has no lower extremity edema. Calves are nontender, bilateral to palpation. Peripheral pulses are palpable x4 extremities. Pulmonary: Breath sounds are clear with no increased work of breathing noted. Chest rises and falls symmetric with respiration. Chest wall is nontender to palpation. Gastrointestinal: Abdomen is soft, nontender, nondistended with bowel sounds in all 4 quadrants. Neurologic: He is alert and oriented x3. Cranial nerves 2-12 grossly intact. : He has no suprapubic nor CVA tenderness. Skin: Warm and dry. LABS: Repeat CBC, CMP and magnesium are pending. ASSESSMENT AND PLAN: 1. Seizure disorder. The patient is noted to have a low Dilantin level. He was given extra Dilantin in the emergency room. We will continue his medications. We will continue his Keppra. We did discuss with the patient the importance of compliance with medication. 2. Leukocytosis. This is probably reactive. We will repeat his labs this morning. 3. Hyponatremia. He was receiving IV fluids and we will repeat labs this morning. 4. Diabetes mellitus type 2 with hyperglycemia. At present he is on pattern blood glucose and sliding scale insulin as we have restarted his diabetic diet. We will restart his home insulin and continue to follow blood sugars. 5. Hypertension. We will continue his home medications. 6. History of nonsustained ventricular tachycardia - telemetry Further treatments pending hospital course. Dictated by AIME Lea for Yaya Traylor MD cc: AIME Lea MD [facility]
[2018-08-15 10:40] LABS: ALB/GLOB RATIO 0.9; ALBUMIN 3.5 g/dL (3.5-5.0); CALCIUM 9.5 mg/dL (8.8-10.2); CREATININE 1.5 mg/dL (0.7-1.2); MAGNESIUM 2.1 mg/dL (1.5-2.7); TOTAL BILIRUBIN 0.36 mg/dL (0.20-1.00); TOTAL PROTEIN 7.2 g/dL (6.3-8.3)
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
[2018-08-15] MEDS: LAMICTAL PO SCH (22:22)
[2018-08-16] MEDS: HUMULIN R SUBQ SCH ×2 (06:34→12:16)
[2018-08-16 08:03] LABS: BASO# 0.01 X1000 (0.0-0.2); BASO% 0.1 % (0.0-0.8); EOS# 0.11 X1000 (0.0-0.7); EOS% 1.3 % (0.0-10.0); HEMATOCRIT 33.3 % (42.0-52.0); HEMOGLOBIN 11.2 g/dL (14.0-18.0); LYMPH# 2.02 X1000 (1.2-3.4); LYMPH% 24.5 % (20.5-51.1); MCH 29.8 PG (27-31); MCHC 33.6 g/dL (33-37); MCV 88.6 FL (81-99); MONO# 0.71 X1000 (0.11-0.59); MONO% 8.6 % (1.7-9.3); MPV 10.1 FL (7.4-10.4); NEUT# 5.41 X1000 (1.4-6.5); NEUT% 65.5 % (42.2-75.2); PLT 229 X1000 (130-400); RBC 3.76 XMIL (4.7-6.1); WBC 8.26 X1000 (4.8-10.8)
[2018-08-16 08:59] LABS: ALBUMIN 3.4 g/dL (3.5-5.0); CALCIUM 8.8 mg/dL (8.8-10.2); CREATININE 1.3 mg/dL (0.7-1.2); POTASSIUM 4.2 mmol/L (3.5-5.1); TOTAL BILIRUBIN 0.24 mg/dL (0.20-1.00); TOTAL PROTEIN 6.7 g/dL (6.3-8.3)
[2018-08-16] MEDS: NORVASC PO SCH (09:29)
[2018-08-16] MEDS: PRINIVIL PO SCH (09:29)
[2018-08-16] MEDS: DILANTIN PO SCH ×2 (09:29→12:17)
[2018-08-16] MEDS: CELEXA PO SCH (09:29)
[2018-08-16] MEDS: MEVACOR PO SCH (09:29)
[2018-08-16] MEDS: LAMICTAL PO SCH (09:29)
[2018-08-16 11:48] VITALS: BP 107/60
[2018-08-16] MEDS ORDERED: GLUCOPHAGE PO SCH (17:00)
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
== END 2018-08-16 16:48 | disposition home or self-care (01) ==
LOC: SUPCPDRO → 3N 15:03 → ED 15:03 → SUATTDRO 22:12
PROVIDERS: ATTEND Internal Medicine
CPT/HCPCS: 70450; 80053; 80101; 80185; 80301; 80307; 80320; 80324; 80345; 80346; 80353; 80358; 80361; 80365; 82055; 82948; 83735; 83992; 84484; 85025; 93005; 96365; 96375; 99285; A9270; G0431; G0434; G0479; G0480; G6040; J2060; J7030; XXXXX